=== PATIENT | male | born 1990 | race Caucasian/White ===

== ENCOUNTER 2018-02-26 15:25 | Emergency (ER) | payer OTHER ==
[~2018-02-26] VITALS: Ht 175.3 cm; Wt 82.3 kg
[2018-02-26] MEDS ORDERED: SERT50TA5 PO (15:50)
[2018-02-26] MEDS ORDERED: HYDR25TA11 PO (15:50)
[2018-02-26 16:07] LABS: BASOPHILS # (AUTO) 0.09 x10^3/uL (0-0.1); BASOPHILS % (AUTO) 1 % (0-1); EOSINOPHILS # (AUTO) 0.42 x10^3/uL (0-0.4); EOSINOPHILS % (AUTO) 3 % (1-7); LYMPHOCYTES # (AUTO) 4.38 x10^3/uL (1-3.4); LYMPHOCYTES % (AUTO) 32 % (22-44); MD NO; MEAN CORPUSCULAR HEMOGLOBIN 30.3 pg (27.5-34.5); MEAN CORPUSCULAR HGB CONC 34.7 g/dL (33.2-36.2); MEAN CORPUSCULAR VOLUME 87.5 fL (81-97); MEAN PLATELET VOLUME 7.8 fL (7.4-10.4); MONOCYTES # (AUTO) 0.87 x10^3/uL (0.2-0.8); MONOCYTES % (AUTO) 6 % (2-9); NEUTROPHILS # (AUTO) 8.15 x10^3/uL (1.8-6.8); NEUTROPHILS % (AUTO) 59 % (42-75); PLATELET COUNT 513 x10^3/uL (130-400); RED CELL DISTRIBUTION WIDTH 14.4 % (9.4-14.8)
[2018-02-26 16:12] LABS: MICROSCOPIC NOT IND
[2018-02-26 16:17] LABS: CULTURE INDICATED? NO
[2018-02-26 16:22] LABS: ALANINE AMINOTRANSFERASE 36 U/L (12-78); ALBUMIN 4.5 g/dL (3.4-5.0); ANION GAP 6 mmol/L (5-15); CHLORIDE 104 mmol/L (98-107); CREATININE 1.16 mg/dL (0.7-1.3)
[2018-02-26 16:24] LABS: ALKALINE PHOSPHATASE 84 U/L (45-117); BILIRUBIN,TOTAL 0.6 mg/dL (0.2-1.0); TOTAL PROTEIN 8.4 g/dL (6.4-8.2)
[2018-02-26 16:57] VITALS: BP 123/85
== END 2018-02-26 17:29 | disposition home or self-care (01) ==
LOC: ED 16:33
DX: G89.29 Other chronic pain (principal); R10.84 Generalized abdominal pain; I10 Essential (primary) hypertension; R19.7 Diarrhea, unspecified; R11.2 Nausea with vomiting, unspecified
CPT/HCPCS: 36415; 74176; 80053; 81003; 83690; 85025; 99285

== ENCOUNTER 2018-12-28 18:04 | Emergency (ER) | payer OTHER ==
[~2018-12-28] VITALS: Ht 175.3 cm; Wt 82.4 kg
[~2018-12-28 18:04] MED LIST: HYDR25TA11 PO; SERT50TA28 PO
[2018-12-28] MEDS ORDERED: LORazepam 1MG TABLET PO ONE (18:30)
[2018-12-28] MEDS ORDERED: ONDANSETRON ODT 4 MG PO ONE (18:30)
[2018-12-28] MEDS ORDERED: THIAMINE 100MG TABLET PO ONE (18:30)
[2018-12-28 18:50] LABS: ALANINE AMINOTRANSFERASE 87 U/L (12-78); ALBUMIN 4.1 g/dL (3.4-5.0); ANION GAP 12 mmol/L (5-15); CALCIUM 8.5 mg/dL (8.5-10.1); CHLORIDE 110 mmol/L (98-107); CREATININE 1.01 mg/dL (0.7-1.3)
[2018-12-28 18:53] LABS: ALKALINE PHOSPHATASE 82 U/L (45-117); BILIRUBIN,TOTAL 0.1 mg/dL (0.2-1.0); TOTAL PROTEIN 8.2 g/dL (6.4-8.2)
[2018-12-28] MEDS ORDERED: ONDANSETRON ODT 4 MG ONE (18:53)
[2018-12-28] MEDS ORDERED: THIAMINE 100MG TABLET ONE (18:53)
[2018-12-28] MEDS ORDERED: LORazepam 1MG TABLET ONE (18:53)
[2018-12-28 19:01] LABS: MD YES; MEAN CORPUSCULAR HEMOGLOBIN 26.1 pg (27.5-34.5); MEAN CORPUSCULAR HGB CONC 32.1 g/dL (33.2-36.2); MEAN CORPUSCULAR VOLUME 81.3 fL (81-97); MEAN PLATELET VOLUME 7.2 fL (7.4-10.4); PLATELET COUNT 503 x10^3/uL (130-400); RED BLOOD COUNT 5.64 x10^6/uL (4.38-5.82); RED CELL DISTRIBUTION WIDTH 23.1 % (9.4-14.8)
--- NOTE | 2018-12-28 19:05 | NUR ---
SPOKE WITH ERP ABOUT PT APPEARING TO BE NON RESPONSIVE FOR SEVERAL SECONDS AND THEN COMING BACK WITH IT. PT WAS FULLY ALERT AND ORIENTED ONCE AWAKE.
--- NOTE | 2018-12-28 19:13 | NUR ---
PT RESTING CALMLY ON GURNEY, MONITORS IN PLACE, CALL LIGHT WITHIN REACH, SIDRAILS UP X2. PT MEDICATED PER MAR
[2018-12-28 20:12] VITALS: BP 106/73
[2018-12-28 20:24] LABS: EOS#(MANUAL) 0.52 x10^3/uL (0.0-0.4); EOS% (MANUAL) 7 % (1-7); LYMPH#(MANUAL) 3.18 x10^3/uL (1-3.4); LYMPHS% (MANUAL) 43 % (22-44); MONOS#(MANUAL) 0.67 x10^3/uL (0.3-2.7); MONOS% (MANUAL) 9 % (2-9); SEG#(MANUAL) 3.03 x10^3/uL (1.8-6.8); SEGS% (MANUAL) 41 % (42-75)
[2018-12-28 20:26] LABS: ANISOCYTOSIS 1+; HYPOCHROMIA 1+
[2018-12-28 20:28] LABS: MICROCYTOSIS 1+
[2018-12-28 20:29] LABS: <PLATELET ESTIMATE> INCREASED; SMALL PLATELETS 1+
== END 2018-12-28 20:15 | disposition home or self-care (01) ==
LOC: ED 19:54
DX: F10.129 Alcohol abuse with intoxication, unspecified (principal); I10 Essential (primary) hypertension
CPT/HCPCS: 36415; 80053; 83690; 85025; 99284; Q0162

== ENCOUNTER 2019-03-11 17:25 | Inpatient (IN) | payer MEDICAID, OTHER ==
[~2019-03-11] VITALS: Ht 175.3 cm; Wt 85.2 kg
[2019-03-13 14:00] VITALS: BP 137/88
== END 2019-03-13 18:04 | disposition home or self-care (01) | DRG 432 ==
LOC: ED 17:56 → EDIP 20:33 → 4EST 22:53
PROVIDERS: ADMIT Internal Medicine; ATTEND Internal Medicine
DX: K70.10 Alcoholic hepatitis without ascites (principal); J69.0 Pneumonitis due to inhalation of food and vomit; F10.239 Alcohol dependence with withdrawal, unspecified; N17.9 Acute kidney failure, unspecified; E83.42 Hypomagnesemia
CPT/HCPCS: 36415; 71045; 76700; 80048; 80053; 80061; 80076; 80307; 82150; 83690; 83735; 84100; 84484; 85025; 85610; 93005; 96374; 96375; G0378; J1650; J2405; J3411; J7070; C9113; J2060; J3475; J7030